=== PATIENT | female | born 1995 | race Caucasian/White ===

== ENCOUNTER 2021-11-28 06:45 | Inpatient (IN) | payer OTHER ==
[2021-11-28] MEDS ORDERED: Carboprost 250 MCG/ML AMP ONE (06:59)
[2021-11-28] MEDS ORDERED: hydrALAZINE 20 MG/ML VIAL ONE (07:05)
[2021-11-28] MEDS ORDERED: Tranexamic Acid 1,000 MG/10 ML VIAL ONE (07:05)
[2021-11-28] MEDS ORDERED: Magnesium Sulfate 20 gm/500 ml 20 GM/500 ML BAG ONE (07:19)
[2021-11-28] MEDS ORDERED: Misoprostol 200 MCG TAB ONE (07:19)
[2021-11-28] MEDS ORDERED: Benzocaine-Menthol 82.5 ML CAN TOP PRN (07:25)
[2021-11-28] MEDS ORDERED: Milk Of Magnesia 30 ML UDCUP PO PRN (07:25)
[2021-11-28] MEDS ORDERED: Ondansetron PF 4 MG/2 ML Vial IVP PRN ×2 (07:25→07:27)
[2021-11-28] MEDS ORDERED: Misoprostol 200 MCG TAB VAG PRN (07:25)
[2021-11-28] MEDS ORDERED: hydrALAZINE 20 MG/ML VIAL SLOW IVP PRN ×4 (07:25→07:27)
[2021-11-28] MEDS ORDERED: Bisacodyl 10 MG SUPP PR PRN (07:25)
[2021-11-28] MEDS ORDERED: Ibuprofen 800 MG TAB PO PRN (07:27)
[2021-11-28] MEDS ORDERED: Calcium Gluc 4.6 MEQ/10 ML (100 MG/ML) SLOW IVP PRN (07:27)
[2021-11-28] MEDS ORDERED: Lidocaine 1% (PF) 30 ML VIAL SC PRN (07:27)
[2021-11-28] MEDS ORDERED: Lorazepam 2 MG/ML VIAL SLOW IVP PRN (07:27)
[2021-11-28] MEDS ORDERED: Promethazine HCl 25 MG/ML VIAL IM PRN (07:27)
[2021-11-28] MEDS ORDERED: Misoprostol 200 MCG TAB PR PRN (07:27)
[2021-11-28] MEDS ORDERED: Carboprost 250 MCG/ML AMP IM PRN (07:27)
[2021-11-28] MEDS ORDERED: Labetalol HCl 100 MG/20 ML VIAL SLOW IVP PRN ×2 (07:27)
[2021-11-28] MEDS ORDERED: Magnesium Sulfate 20 gm/500 ml 20 GM/500 ML BAG IVPB SCH (07:30)
[2021-11-28] MEDS ORDERED: NS w/ Oxytocin 30 units 500 ML IV SCH ×2 (07:30)
[2021-11-28] MEDS ORDERED: Labetalol HCl 100 MG/20 ML VIAL ONE (07:41)
[2021-11-28 08:28] VITALS: BMI 27.9
[2021-11-28 09:10] LABS: Amphetamine Not Detected (NotDetected); Barbiturates Screen Not Detected (NotDetected); Benzodiazepine Screen Not Detected (NotDetected); Cocaine Metabolite Screen Not Detected (NotDetected); Methadone Not Detected (NotDetected); Methamphetamine Not Detected (NotDetected); Opiate Screen Not Detected (NotDetected); Oxycodone Screen Not Detected (NotDetected); Phencyclidine (PCP) Not Detected (NotDetected); THC/Cannabinoid Screen Not Detected (NotDetected); Tricyclic Screen Not Detected (NotDetected)
[2021-11-28 09:24] LABS: Hemoglobin 11.1 g/dL (12.0-15.5); Mean Corpuscular HGB CONC 33.6 g/dL (32.0-36.0); Mean Corpuscular Hemoglobin 29.1 pg (27.0-33.0); Mean Corpuscular Volume 86.6 fl (81.6-98.3); Platelet Count 337 10x3/uL (150-450); RBC Distribution Width 13.8 % (11.5-14.5); Red Blood Cell (RBC) Count 3.81 10x6/uL (3.90-5.03); White Blood Cell (WBC) Count 28.7 10x3/uL (3.5-10.5)
[2021-11-28 09:25] LABS: ALT (SGPT) 7 U/L (8-55); AST (SGOT) 18 U/L (5-34); Albumin 3.1 g/dL (3.5-5.0); Alkaline Phosphatase 180 U/L (40-110); Anion Gap 13 mmol/L (10-20); BUN (Urea Nitrogen) 12 mg/dL (7.0-18.7); Bilirubin, Total 0.1 mg/dL (0.2-1.2); Calc. Creatinine Clearance 165 mL/min (70-130); Calcium 8.5 mg/dL (7.8-10.44); Carbon Dioxide 18 mmol/L (22-29); Chloride 107 mmol/L (98-107); Estimated GFR 127; Globulin 3.5 g/dL (2.4-3.5); Glucose 126 mg/dL (70-105); Potassium 3.5 mmol/L (3.5-5.1); Protein, Total 6.6 g/dL (6.0-8.3); Sodium 134 mmol/L (136-145)
[2021-11-28 09:43] LABS: Syphilis Antibody Nonreactive (Nonreactive); Syphilis Antibody Index 0.08 S/CO (<1.00 Non-Reactive)
[2021-11-28 09:58] LABS: SARS-CoV-2 NAA Rapid Test Not Detected (NotDetected)
[2021-11-28 10:21] LABS: HBSAg Index 0.15 S/CO (0-0.99); HIV (1/2) Antibody/Antigen Non-Reactive (NonReactive); HIV 1/2 INDEX 0.08 S/CO (<1.00); Hep B Surf Ag Non-Reactive S/CO (NonReactive)
[2021-11-28] MEDS: Ibuprofen 800 MG TAB PO SCH (12:07)
[2021-11-28 15:46] LABS: HBSAB Concentration Less than 8.00 mIU/mL; Hep B Surf AB Non-Reactive (NonReactive)
[2021-11-29] MEDS: Ibuprofen 800 MG TAB PO SCH ×4 (01:00→18:38)
[2021-11-29 05:25] LABS: #Basophils 0.1 10x3/uL (0.0-0.2); #Eosinphils 0.2 10x3/uL (0.0-0.5); #Monocytes 1.2 10x3/uL (0.0-1.1); #Neutrophils 13.7 10x3/uL (1.5-8.4); %Basophils 0.3 % (0.0-2.0); %Eosinophils 1.1 % (0.0-6.0); %Lymphocytes 17.2 % (18.0-47.0); %Monocytes 6.6 % (0.0-10.0); %Neutrophils 74.2 % (40.0-75.0); Hemoglobin 8.9 g/dL (12.0-15.5); Mean Corpuscular HGB CONC 33.3 g/dL (32.0-36.0); Mean Platelet Volume 10.5 fl (7.4-10.4); Platelet Count 310 10x3/uL (150-450); RBC Distribution Width 14.2 % (11.5-14.5); Red Blood Cell (RBC) Count 3.07 10x6/uL (3.90-5.03); White Blood Cell (WBC) Count 18.5 10x3/uL (3.5-10.5)
[2021-11-29] MEDS ORDERED: Acetaminophen 500 MG TAB PO SCH (05:30)
[2021-11-29] MEDS ORDERED: Boostrix 0.5 ML (Tdap) VIAL (>/=7 yrs of age) IM ONE ×2 (07:25→16:58)
[2021-11-29] MEDS: Prenatal Vitamin 1 TAB PO SCH ×2 (09:49→18:37)
[2021-11-29] MEDS: Docusate 100 MG CAP PO SCH ×5 (09:49→23:48)
[2021-11-29] MEDS: Ferrous Sulfate 325 MG TAB PO SCH ×4 (09:49→23:47)
[2021-11-29] MEDS ORDERED: Milk Of Magnesia 30 ML UDCUP PO PRN (16:58)
[2021-11-29] MEDS ORDERED: Benzocaine-Menthol 82.5 ML CAN TOP PRN (16:58)
[2021-11-29] MEDS ORDERED: Misoprostol 200 MCG TAB VAG PRN (16:58)
[2021-11-29] MEDS ORDERED: Lanolin Ointment 7 GM TUBE TOP PRN (16:58)
[2021-11-29] MEDS ORDERED: Magnesium Sulfate 20 gm/500 ml 20 GM/500 ML BAG IVPB SCH (16:58)
[2021-11-29] MEDS ORDERED: hydrALAZINE 20 MG/ML VIAL SLOW IVP PRN ×3 (16:58)
[2021-11-29] MEDS ORDERED: Bisacodyl 10 MG SUPP PR PRN (16:58)
[2021-11-29] MEDS ORDERED: NS w/ Oxytocin 30 units 500 ML IV SCH (16:58)
[2021-11-29] MEDS ORDERED: Calcium Gluc 4.6 MEQ/10 ML (100 MG/ML) SLOW IVP PRN (16:58)
[2021-11-29] MEDS ORDERED: Ondansetron PF 4 MG/2 ML Vial IVP PRN (16:58)
[2021-11-29] MEDS ORDERED: Lorazepam 2 MG/ML VIAL SLOW IVP PRN (16:58)
[2021-11-29] MEDS ORDERED: Labetalol HCl 100 MG/20 ML VIAL SLOW IVP PRN ×2 (16:58)
[2021-11-30] MEDS: Ibuprofen 800 MG TAB PO SCH ×2 (02:25→10:18)
[2021-11-30 08:26] VITALS: TEMP 98
[2021-11-30] MEDS: Ferrous Sulfate 325 MG TAB PO SCH (08:52)
[2021-11-30] MEDS: Docusate 100 MG CAP PO SCH (08:53)
[2021-11-30] MEDS ORDERED: Prenatal Vitamin 1 TAB PO SCH (09:00)
[2021-11-30 15:37] VITALS: BP 130/70
== END 2021-11-30 15:45 | disposition home or self-care (01) | DRG 807 ==
LOC: CSHLD 06:45 → CSHPED 11-29 16:57
PROVIDERS: ADMIT Obstetrics & Gynecology; ATTEND Obstetrics & Gynecology
PROC: 10E0XZZ Delivery of Products of Conception, External Approach (ICD-10-PCS; principal; 2021-11-28)
PROC: 0UQMXZZ Repair Vulva, External Approach (ICD-10-PCS; 2021-11-28)
DX: O32.8XX0 Maternal care for other malpresentation of fetus, not applicable or unspecified (principal); Z37.0 Single live birth; O71.82 Other specified trauma to perineum and vulva; Z3A.38 38 weeks gestation of pregnancy; Z20.822 Contact with and (suspected) exposure to COVID-19; Z91.040 Latex allergy status; O62.2 Other uterine inertia; O14.14 Severe pre-eclampsia complicating childbirth
CPT/HCPCS: 36415; 51702; 80053; 80306; 82570; 84156; 85025; 85027; 86706; 86762; 86780; 86850; 86900; 86901; 87340; 87389; 88307; 99285; J0360; J0595; J2001; J2590; J3475; J3490; U0002